=== PATIENT | male | born 1940 | race Hispanic/Latino ===

== ENCOUNTER 2019-04-27 14:31 | Observation (INO) | payer SELFPAY ==
[2019-04-27 15:59] LABS: #Basophils 0.1 thou/uL (0.0-0.2); #Eosinphils 0.8 thou/uL (0.0-0.7); #Monocytes 1.7 thou/uL (0.11-0.59); #Neutrophils 9.3 thou/uL (1.40-6.50); %Basophils 0.5 % (0.0-1.0); %Eosinophils 5.2 % (0.0-10.0); %Lymphocytes 19.9 % (21.0-51.0); %Monocytes 11.5 % (0.0-10.0); %Neutrophils 62.9 % (42.0-75.0); Mean Corpuscular HGB CONC 35.3 g/dL (32.0-36.0); Mean Corpuscular Hemoglobin 32.6 pg (27.0-31.0); Mean Corpuscular Volume 92.2 fL (78.0-98.0); Mean Platelet Volume 6.7 fL (7.4-10.4); Platelet Count 260 thou/uL (130-400); RBC Distribution Width 13.1 % (11.5-14.5); Red Blood Cell (RBC) Count 4.59 mill/uL (4.70-6.10); White Blood Cell (WBC) Count 14.8 thou/uL (4.8-10.8)
--- NOTE | 2019-04-27 16:04 | RAD ---
PORTABLE CHEST ONE VIEW: History: Chest pain. FINDINGS: Heart size is within normal limits. There are atherosclerotic changes of the aorta. The lungs are alfonso ar of infiltrate. IMPRESSION: No active intrathoracic disease. POS: [facility]
[2019-04-27 16:18] LABS: ALT (SGPT) 35 U/L (8-55); AST (SGOT) 30 U/L (5-34); Albumin 4.2 g/dL (3.4-4.8); Alkaline Phosphatase 50 U/L (40-110); Anion Gap 18 mmol/L (10-20); BUN (Urea Nitrogen) 54 mg/dL (8.4-25.7); Bilirubin, Total 0.3 mg/dL (0.2-1.2); CK (CPK) 277 U/L (30-200); Calc. Creatinine Clearance 0 mL/min (70-130); Calcium 9.3 mg/dL (7.8-10.44); Carbon Dioxide 17 mmol/L (23-31); Chloride 106 mmol/L (98-107); Estimated GFR-MDRD 14; Globulin 3.7 g/dL (2.4-3.5); Glucose 157 mg/dL (83-110); Potassium 4.8 mmol/L (3.5-5.1); Protein, Total 7.9 g/dL (5.8-8.1); Sodium 136 mmol/L (136-145)
[2019-04-27 16:30] LABS: Bilirubin Negative (Negative); Blood, Urine Trace (Negative); Clarity Clear (Clear); Glucose, Urine (Dipstick) 30 mg/dL (Negative); Leukocyte Negative Leu/uL (Negative); Nitrite Negative (Negative); Protein, Urine (Dipstick) 200 mg/dL (Neg-Trace); Urobilinogen Normal mg/dL (Less than 2)
[2019-04-27 16:33] LABS: Bacteria/HPF None Seen HPF (None Seen); RBC/HPF None Seen HPF (0-3); Squamous Epithelial 0-3 HPF (0-3); WBC/HPF None Seen HPF (0-3)
[2019-04-27 16:41] LABS: CKMB 5.1 ng/mL (0-6.6)
--- NOTE | 2019-04-27 17:12 | CT ---
CT OF BRAIN PERFORMED WITHOUT CONTRAST ENHANCEMENT: History: Headache x 2 days. FINDINGS: There is generalized ventricular and sulcal prominence. There are no signs of intracerebral hemorrhag e or extraaxial fluid collections. The mastoid air cells and visualized sinuses are clear. IMPRESSION: No acute intracranial abnormalities. POS: [facility]
[2019-04-27 19:54] LABS: Lactic Acid 1.7 mmol/L (0.5-2.2)
[2019-04-27] MEDS ORDERED: Acetaminophen 325 MG TAB PO PRN (21:12)
[2019-04-27] MEDS ORDERED: Ondansetron PF 4 MG/2 ML Vial IVP PRN (21:12)
[2019-04-27] MEDS ORDERED: Ondansetron ODT 4 MG TAB SL PRN (21:12)
[2019-04-27] MEDS ORDERED: Sodium Chloride 0.9% 1,000 ML IV SCH (21:15)
[2019-04-27 22:04] VITALS: BMI 26.1
[2019-04-27] MEDS ORDERED: Bisacodyl 10 MG SUPP PR PRN (22:33)
[2019-04-27] MEDS ORDERED: Bisacodyl 5 MG TAB PO PRN (22:33)
[2019-04-27] MEDS ORDERED: Senokot S 8.6-50 MG TAB PO PRN (22:33)
--- NOTE | 2019-04-27 22:40 | PDOC.HHP ---
Hospitalist HPI - History of Present Illness Dizziness History of Present Illness: Kevin is a 78 year old male with PMH CKD, HTN, asthma who presents to ED for dizziness, weakness, blurry vision x 1 day. He was normal until this AM, this AM he developed a headache, blurry vision, weakness, dizziness. He has a history of CKD and HTN, patient is recent immigrant from [facility] 2 months ago. He reportedly saw a doctor there who placed patient on irbesartan and told him he would probably need dialysis in 2 years or so. In ED, CT head negative for acite findings, CXR without acute processes, TnI 0.061, Cr 4.22 with BUN 54 , CO2 17, WBC 14, UA w/ proteinuria and trace blood, sound physicians contacted for admission. Hospitalist ROS - Review of Systems Constitutional: reports: weakness. denies: fever, chills Eyes: reports: vision change (blurry vision), other ENT: denies: mouth swelling, throat pain, throat swelling Respiratory: denies: cough, dry, shortness of breath Cardiovascular: denies: chest pain, palpitations Gastrointestinal: denies: nausea, vomiting Genitourinary: denies: dysuria, frequency Musculoskeletal: denies: neck pain, shoulder pain Skin: denies: rash, lesions Neurological: reports: other (headache). denies: numbness, confusion, seizures All other systems reviewed; all pertinent +/- noted in HPI/Subj - Medication Medications: Active Medications Generic Name Dose Route Start Last Admin Trade Name Freq PRN Reason Stop Dose Admin Sodium Chloride 1,000 mls @ 125 mls/hr 04/27/19 21:15 04/27/19 21:23 Normal Saline 0.9% IV 04/28/19 05:14 1,000 mls .Q8H LINDA Administration takes irbesartan 150mg at night Hospitalist History - Past Medical History Other Medical History: HTN asthma - Past Surgical History Other Surgical History: back surgery - Family History Other Family History: denies FH of kidney diseases - Social History Smoking Status: Never smoker Alcohol: reports: None Drugs: reports: none - Exam General Appearance: NAD, awake alert Eye: PERRL, anicteric sclera ENT: normocephalic atraumatic, no oropharyngeal lesions, moist mucosa Neck: supple, symmetric, no JVD, no thyromegaly, no lymphadenopathy, no carotid bruit Heart: RRR, no murmur, no gallops, no rubs, normal peripheral pulses Respiratory: CTAB, no wheezes, no rales, no ronchi, normal chest expansion, no tachypnea, normal percussion Gastrointestinal: soft, non-tender, non-distended, normal bowel sounds, no palpable masses, no hepatomegaly, no splenomegaly, no bruit Extremities: no cyanosis, no clubbing, no edema Skin: normal turgor, no lesions, no rashes Neurological: cranial nerve grossly intact, normal sensation to touch, no weakness, no focal deficits, no new deficit Musculoskeletal: normal tone, normal strength, no muscle wasting Psychiatric: normal affect, normal behavior, A&O x 3 Hospitalist Results - Labs Result Diagrams: 04/27/19 15:50 04/27/19 15:49 Lab results: WBC 14.8 thou/uL (4.8-10.8) H 04/27/19 15:50 Hgb 15.0 g/dL (14.0-18.0) 04/27/19 15:50 Hct 42.4 % (42.0-52.0) 04/27/19 15:50 MCV 92.2 fL (78.0-98.0) 04/27/19 15:50 Plt Count 260 thou/uL (130-400) 04/27/19 15:50 Neutrophils % 62.9 % (42.0-75.0) 04/27/19 15:50 Sodium 136 mmol/L (136-145) 04/27/19 15:49 Potassium 4.8 mmol/L (3.5-5.1) 04/27/19 15:49 Chloride 106 mmol/L (98-107) 04/27/19 15:49 Carbon Dioxide 17 mmol/L (23-31) L 04/27/19 15:49 BUN 54 mg/dL (8.4-25.7) H 04/27/19 15:49 Creatinine 4.22 mg/dL (0.7-1.3) H 04/27/19 15:49 Glucose 157 mg/dL (83-110) H 04/27/19 15:49 Lactic Acid 1.7 mmol/L (0.5-2.2) 04/27/19 19:23 Calcium 9.3 mg/dL (7.8-10.44) 04/27/19 15:49 Total Bilirubin 0.3 mg/dL (0.2-1.2) 04/27/19 15:49 AST 30 U/L (5-34) 04/27/19 15:49 ALT 35 U/L (8-55) 04/27/19 15:49 Alkaline Phosphatase 50 U/L (40-110) 04/27/19 15:49 Creatine Kinase 277 U/L (30-200) H 04/27/19 15:49 CK-MB (CK-2) 5.1 ng/mL (0-6.6) 04/27/19 15:49 Troponin I 0.061 ng/mL (< 0.028) H 04/27/19 15:49 B-Natriuretic Peptide 20.1 pg/mL (0-100) 04/27/19 15:50 Serum Total Protein 7.9 g/dL (5.8-8.1) 04/27/19 15:49 Albumin 4.2 g/dL (3.4-4.8) 04/27/19 15:49 Urine Ketones Negative mg/dL (Negative) 04/27/19 16:20 Urine Blood Trace (Negative) A 04/27/19 16:20 Urine Nitrite Negative (Negative) 04/27/19 16:20 Ur Leukocyte Esterase Negative Jacey/uL (Negative) 04/27/19 16:20 Urine RBC None Seen HPF (0-3) 04/27/19 16:20 Urine WBC None Seen HPF (0-3) 04/27/19 16:20 Ur Squamous Epith Cells 0-3 HPF (0-3) 04/27/19 16:20 Urine Bacteria None Seen HPF (None Seen) 04/27/19 16:20 Additional comment: VITAL SIGNS [place] Apr 27, 2019 19:21 MAGGY Sanchez, Stevinson BP: 139/77, Pulse: 92, Resp: 20, Temp: 97.9 (Oral), Pain: 0, O2 sat: 96 on Room Air, Time: 04/27/2019 19 :21. - EKG Interpretation EKG: EKG ED read: 12 lead EKG shows, sinus tachycardia, Conduction normal, ST segments normal, T waves normal, Sumrall normal Hospitalist H&P A/P - Problem (1) Acute renal failure Status: Acute Assessment and Plan: acute renal failure, with history of CKD, seen by doctor but this was in [facility] - admit to floor - hold irbesartan - consult nephrology - change diet to renal if K becomes a problem - check renal panel daily (2) HTN (hypertension) Code(s): I10 - ESSENTIAL (PRIMARY) HYPERTENSION Status: Acute Assessment and Plan: hold irbesartan, prn hydralazine (3) Asthma Code(s): J45.909 - UNSPECIFIED ASTHMA, UNCOMPLICATED Status: Acute Assessment and Plan: prn duonebs (4) Elevated troponin Code(s): R74.8 - ABNORMAL LEVELS OF OTHER SERUM ENZYMES Status: Acute Assessment and Plan: perhaps due to renal failure, will trend x 24 hours (5) Leukocytosis Code(s): D72.829 - ELEVATED WHITE BLOOD CELL COUNT, UNSPECIFIED Status: Acute Assessment and Plan: noted, trend cbc, multiple stressors noted
[2019-04-27] MEDS ORDERED: hydrALAZINE 20 MG/ML VIAL SLOW IVP PRN (22:50)
[2019-04-27] MEDS ORDERED: Dextrose 5% in Water 1,000 ML IV PRN (23:02)
[2019-04-27] MEDS ORDERED: Dextrose 50% Abboject 50 ML SYRINGE SLOW IVP PRN (23:02)
[2019-04-27] MEDS ORDERED: HumaLOG 300 UNITS/3 ML VIAL SC PRN (23:02)
[2019-04-27 23:44] LABS: Troponin I 0.041 ng/mL (< 0.028)
[2019-04-28 06:24] LABS: #Basophils 0.1 thou/uL (0.0-0.2); #Lymphocytes 3.1 thou/uL (1.20-3.40); #Monocytes 1.2 thou/uL (0.11-0.59); #Neutrophils 6.5 thou/uL (1.40-6.50); %Basophils 0.8 % (0.0-1.0); %Eosinophils 8.3 % (0.0-10.0); %Monocytes 10.1 % (0.0-10.0); %Neutrophils 54.8 % (42.0-75.0); Hemoglobin 12.9 g/dL (14.0-18.0); Mean Corpuscular HGB CONC 34.5 g/dL (32.0-36.0); Mean Corpuscular Hemoglobin 31.8 pg (27.0-31.0); Mean Corpuscular Volume 92.3 fL (78.0-98.0); Mean Platelet Volume 6.7 fL (7.4-10.4); Platelet Count 222 thou/uL (130-400); Red Blood Cell (RBC) Count 4.06 mill/uL (4.70-6.10); White Blood Cell (WBC) Count 11.9 thou/uL (4.8-10.8)
[2019-04-28 06:31] LABS: Hemoglobin A1c 5.6 % (4.0-6.0)
[2019-04-28 06:40] LABS: Albumin 3.7 g/dL (3.4-4.8); Anion Gap 13 mmol/L (10-20); BUN (Urea Nitrogen) 50 mg/dL (8.4-25.7); Calc. Creatinine Clearance 17 mL/min (70-130); Calcium 8.6 mg/dL (7.8-10.44); Carbon Dioxide 21 mmol/L (23-31); Chloride 109 mmol/L (98-107); Estimated GFR-MDRD 15; Glucose 94 mg/dL (83-110); Phosphorus 3.4 mg/dL (2.3-4.7); Potassium 5.2 mmol/L (3.5-5.1); Sodium 138 mmol/L (136-145)
[2019-04-28 07:44] LABS: Troponin I 0.041 ng/mL (< 0.028)
[2019-04-28] MEDS: Enoxaparin Sodium 30 MG/0.3 ML SYRINGE SC SCH (08:22)
[2019-04-28] MEDS: Famotidine 20 MG TAB PO SCH (08:22)
[2019-04-28] MEDS ORDERED: Prevnar 13-Val Conj/PF 0.5 ML SYRINGE IM ONE (09:00)
[2019-04-28 12:21] LABS: Creatinine, Urine 46.41 mg/dL (63-166)
--- NOTE | 2019-04-28 15:04 | PDOC.HOSPP ---
- Subjective Encounter Date: 04/28/19 Subjective: patient has no complaints; tolerating oral intake and ambulating to the restroom ; denies pain; no events overnight - Objective Vital Signs & Weight: Vital Signs (12 hours) Temp Pulse Resp BP BP Pulse Ox 04/28/19 11:22 98.1 F 79 16 164/82 H 97 04/28/19 07:55 98.0 F 77 16 159/85 H 97 04/28/19 04:27 97.8 F 84 18 147/79 H 95 Weight Weight 172 lb I&O: 04/27/19 04/28/19 04/29/19 06:59 06:59 06:59 Intake Total 1500 Balance 1500 Result Diagrams: 04/28/19 05:29 04/28/19 05:29 Additional Labs: Accuchecks 04/28/19 04/28/19 11:27 05:16 POC Glucose 105 96 Hospitalist ROS - Review of Systems Respiratory: denies: shortness of breath Cardiovascular: denies: chest pain Gastrointestinal: denies: abdominal pain - Medication Medications: Active Medications Generic Name Dose Route Start Last Admin Trade Name Freq PRN Reason Stop Dose Admin Enoxaparin Sodium 30 mg 04/28/19 09:00 04/28/19 08:22 Lovenox SC 30 mg 0900 LINDA Administration Famotidine 20 mg 04/28/19 09:00 04/28/19 08:22 Pepcid PO 20 mg DAILY LINDA Administration - Exam General Appearance: NAD, awake alert Eye: PERRL, anicteric sclera ENT: normocephalic atraumatic, no oropharyngeal lesions, moist mucosa Neck: supple, symmetric, no JVD, no thyromegaly, no lymphadenopathy, no carotid bruit Heart: RRR, no murmur, no gallops, no rubs, normal peripheral pulses Respiratory: CTAB, no wheezes, no rales, no ronchi, normal chest expansion, no tachypnea, normal percussion Gastrointestinal: soft, non-tender, non-distended, normal bowel sounds, no palpable masses, no hepatomegaly, no splenomegaly, no bruit Extremities: no cyanosis, no clubbing, no edema Skin: normal turgor, no lesions, no rashes Neurological: cranial nerve grossly intact, normal sensation to touch, no weakness, no focal deficits, no new deficit Musculoskeletal: normal tone, normal strength, no muscle wasting Psychiatric: normal affect, normal behavior, A&O x 3 Hosp A/P (1) Acute renal failure Status: Acute Plan: Continue with IV fluids; follow up with US renal, closely monitor urine output; avoid nephrotoxins; appreciate nephrology evaluation and recommendations; likely has a component of CKD, patient and family are unsure (2) Elevated troponin Code(s): R74.8 - ABNORMAL LEVELS OF OTHER SERUM ENZYMES Status: Acute Plan: underlying CKD; will need outpatient follow up (3) HTN (hypertension) Code(s): I10 - ESSENTIAL (PRIMARY) HYPERTENSION Status: Acute Plan: continue hydralazine PRN, will start low dose beta nick
[2019-04-28 15:18] LABS: Troponin I 0.031 ng/mL (< 0.028)
--- NOTE | 2019-04-28 16:05 | ULT ---
EXAM: US Renal Bilateral STANDARD PROVIDED CLINICAL HISTORY: Renal failure COMPARISON: None FINDINGS: Right kidney measures about 7.8 x 5 x 4.6 cm and demonstrates no evidence for hydronephrosis. Exophyt ic 1.7 cm simple appearing cyst as well as smaller foci of diminished echogenicity too small to definitively characterize but probably also reflecting cysts. The left kidney measures about 9.5 x 5.2 x 5.2 cm and demonstrates no evidence for hydronephrosis or mass. The urinary bladder appears sonographically unremarkable. IMPRESSION: No evidence for hydronephrosis.
[2019-04-28] MEDS: Metoprolol Tartrate 25 MG TAB PO SCH (20:22)
--- NOTE | 2019-04-29 02:26 | CON ---
DATE OF CONSULTATION: REQUESTING PHYSICIAN: Cihno Villavicencio MD REASON FOR CONSULTATION: Advanced kidney disease. IMPRESSION: 1. Advanced chronic kidney disease, stage 5. 2. Mild hyperkalemia. PLAN: 1. Renally dose all medications for very low GFR. 2. Avoid potentially nephrotoxic agents. 3. Evaluate bone mineral metabolism. 4. No emergent indication for renal replacement therapy (hemodialysis). HISTORY OF PRESENT ILLNESS: History is that of 78-year-old visiting gentleman from [facility] who was recently told about kidney failure and the possibility of being on dialysis in no distant future. The patient presented here with dizziness, weakness, blurry vision, noted with a creatinine of above 4, thus the need for renal consultation. Denies nausea. Denies poor appetite. Denies any significant shortness of breath. PAST MEDICAL HISTORY: Significant for asthma, hypertension, chronic kidney disease. MEDICATIONS: Reviewed and documented on [employer]. We will be holding the patient's irbesartan. FAMILY HISTORY: Not significantly related to presenting illness. SOCIAL HISTORY: The patient is from [facility]. No alcohol, no illicit drug use. REVIEW OF SYSTEMS: As documented in the body of history. PHYSICAL EXAMINATION: GENERAL: The patient was found not to be in any acute distress, hemodynamically stable, noted with the following vital signs. VITAL SIGNS: Afebrile, temperature 98.1, pulse 79, respiratory rate of 16, O2 saturations of 97% with a blood pressure of 164/82. HEENT: Unremarkable. Moist oral mucosa. No conjunctival injection or icterus. NECK: Supple. CARDIOVASCULAR: First and second heart sounds were heard. RESPIRATORY: Clear to auscultation. DIGESTIVE: Revealed a benign abdomen with positive bowel sounds. EXTREMITIES: No peripheral edema. SKIN: No new gross rash. LYMPHATICS: No peripheral lymphadenopathy. SUMMARY: A 78-year-old gentleman who presented here with dizziness, noted with the advanced renal failure. Thank you for this consultation. We will follow with you. Job ID: [id number]
[2019-04-29 07:14] LABS: Albumin 3.7 g/dL (3.4-4.8); Anion Gap 14 mmol/L (10-20); BUN (Urea Nitrogen) 58 mg/dL (8.4-25.7); BUN/Creatinine Ratio 15.03; Calc. Creatinine Clearance 17 mL/min (70-130); Carbon Dioxide 21 mmol/L (23-31); Chloride 105 mmol/L (98-107); Estimated GFR-MDRD 15; Glucose 91 mg/dL (83-110); Phosphorus 4.7 mg/dL (2.3-4.7); Potassium 4.9 mmol/L (3.5-5.1); Sodium 135 mmol/L (136-145)
[2019-04-29 07:22] VITALS: BP 143/74; TEMP 98.5
[2019-04-29] MEDS: Metoprolol Tartrate 25 MG TAB PO SCH (08:42)
[2019-04-29] MEDS: Enoxaparin Sodium 30 MG/0.3 ML SYRINGE SC SCH (08:42)
[2019-04-29] MEDS: Famotidine 20 MG TAB PO SCH (08:42)
[2019-04-29] MEDS ORDERED: Aspirin 325 mg Enteric Coated Tablet PO SCH (09:00)
--- NOTE | 2019-04-29 20:09 | DIS ---
DATE OF ADMISSION: 04/27/2019 DATE OF DISCHARGE: 04/29/2019 DISCHARGE DIAGNOSES: 1. Chronic kidney disease stage 4 to 5. 2. Metabolic acidosis secondary to #1, stable. 3. Elevated troponin I secondary to #1. 4. Hypertension, stable. CONSULTATIONS: Dr. Escobar Vazquez with Nephrology Service. PERTINENT LABORATORY AND X-RAY FINDINGS: Creatinine ranged between 3.86 to 4.22. Estimated GFR ranged between 14 to 15. Hemoglobin A1c 5.6. Lactic acid level ranged between 1.7 to 2.1. Phosphorus ranged between 3.4 to 4.7. Troponin I ranged between 0.031 to 0.061. BNP 20. CBC showed a white blood cell count ranging between 11.9 to 14.8. Blood cultures x2 dated 04/27/2019, showed no growth at 48 hours. Portable chest x-ray dated 04/27/2019, showed no acute cardiopulmonary process. CT of the brain without contrast dated 04/27/2019, showed no acute intracranial process. Bilateral renal ultrasound dated 04/28/2019, showed no evidence for hydronephrosis. HOSPITAL COURSE: The patient was initially admitted to the medical floor, who initially presented with dizziness and weakness. The patient with known chronic kidney disease and hypertension with metabolic screening showing evidence of chronic kidney disease stage 4 to 5. The patient received general supportive management with restriction of his home medication of irbesartan. The patient was evaluated by the Nephrology Service due to chronic kidney disease with recommendations for renally dosed medications and avoidance of nephrotoxic agents. The patient clinically stabilized with supportive management without specific recommendations for hemodialysis. The patient remained clinically stable during the hospital course with stable vital signs. I have examined the patient at the time of discharge and discussed followup instructions. The patient and family verbalized understanding and in agreement, ready for discharge on 04/29/2019. DISCHARGE MEDICATIONS: Irbesartan, may resume in 48 hours. FOLLOWUP: The patient may follow up with Dr. Escobar Vazquez and to call his office for appointment time and date. CONDITION ON DISCHARGE: Stable. ACTIVITY: Ad-kamini. DIET: Renal. CODE STATUS: Full. DISPOSITION: Home on 04/29/2019. Job ID: [id number]
== END 2019-04-29 15:57 | disposition home or self-care (01) ==
LOC: ERS 14:31 → T4-A 18:50
PROVIDERS: ADMIT Internal Medicine; ATTEND Internal Medicine
DX: I12.0 Hypertensive chronic kidney disease with stage 5 chronic kidney disease or end stage renal disease (principal); N18.5 Chronic kidney disease, stage 5; N17.9 Acute kidney failure, unspecified; E87.2 Acidosis; E87.5 Hyperkalemia; R73.9 Hyperglycemia, unspecified; J45.909 Unspecified asthma, uncomplicated; D72.829 Elevated white blood cell count, unspecified; Z79.899 Other long term (current) drug therapy
CPT/HCPCS: 36415; 36416; 70450; 71045; 76770; 80053; 80069; 81003; 81015; 82550; 82553; 82570; 83036; 83605; 83880; 83970; 84156; 84484; 85025; 87040; 90471; 90670; 93005; 96360; 96361; 96372; G0009; G0378; J1650